=== PATIENT | female | born 1995 | race African-American/Black ===

== ENCOUNTER 2017-12-16 17:43 | Emergency (ER) | payer MEDICAID, OTHER ==
[~2017-12-16] VITALS: Ht 157.5 cm; Wt 60.0 kg
[2017-12-16] MEDS ORDERED: ACYCLOVIR 400 MG TABLET PO ONE (18:30)
[2017-12-16] MEDS ORDERED: PREDNISONE 20MG TABLET PO ONE (18:30)
[2017-12-16] MEDS ORDERED: IBUPROFEN 600MG TABLET PO ONE (21:00)
[2017-12-16 21:38] VITALS: BP 117/75
== END 2017-12-16 21:44 | disposition home or self-care (01) ==
LOC: ER 18:43
DX: G51.0 Bell's palsy (principal); K14.0 Glossitis; R03.0 Elevated blood-pressure reading, without diagnosis of hypertension; Z98.890 Other specified postprocedural states
CPT/HCPCS: 70450; 81025; 99284; J7512

== ENCOUNTER 2024-06-13 11:21 | Emergency (ER) | payer MEDICAID ==
[~2024-06-13] VITALS: Ht 157.5 cm; Wt 65.8 kg
[2024-06-13 11:24] VITALS: BP 121/79; TEMP 36.8; O2SAT 100
[2024-06-13 11:25] VITALS: PULSE 79; RESP 14; O2SAT 100
[2024-06-13] MEDS ORDERED: HYDROCODONE/ACETAMINOPHEN 10/325MG TABLET PO ONE (12:30)
[2024-06-13] MEDS ORDERED: HYDR-4009 MT (12:31)
[2024-06-13] MEDS: HYDROCODONE/ACETAMINOPHEN 10/325MG TABLET PO NR (13:07)
== END 2024-06-13 14:40 | disposition home or self-care (01) ==
LOC: ER 11:21
DX: S82.141A Displaced bicondylar fracture of right tibia, initial encounter for closed fracture (principal); M25.00 Hemarthrosis, unspecified joint; X58.XXXA Exposure to other specified factors, initial encounter; Y93.89 Activity, other specified; Y92.89 Other specified places as the place of occurrence of the external cause; Y99.8 Other external cause status
CPT/HCPCS: 73560; 29505; 99283; Z7610; L1830; 29515